=== PATIENT | female | born 1975 | race Caucasian/White ===

== ENCOUNTER → 2020-08-08 | Outpatient (CLI) | payer BC ==
[~2020-08-08] MED LIST: IBUP-1222 PO; None at this time
== END | disposition home or self-care (01) ==
LOC: STAR 14:30
PROVIDERS: ATTEND Obstetrics & Gynecology Female Pelvic Medicine and Reconstructive Surgery
DX: Z20.822 Contact with and (suspected) exposure to COVID-19 (principal); N39.3 Stress incontinence (female) (male); R10.2 Pelvic and perineal pain; N81.10 Cystocele, unspecified; N81.6 Rectocele
CPT/HCPCS: 87635